=== PATIENT | male | born 1995 | race African-American/Black ===

== ENCOUNTER 2020-08-12 11:13 | Emergency (ER) | payer OTHER ==
[~2020-08-12] VITALS: Ht 182.9 cm; Wt 75.3 kg
[2020-08-12] MEDS ORDERED: CEPHALEXIN500 MG PO ×2 (11:56→12:34)
[2020-08-12 12:33] VITALS: BP 129/68
== END 2020-08-12 12:51 | disposition home or self-care (01) ==
LOC: M.ERS 11:13
DX: S61.412A Laceration without foreign body of left hand, initial encounter (principal); W26.8XXA Contact with other sharp object(s), not elsewhere classified, initial encounter; Y93.89 Activity, other specified; Y92.89 Other specified places as the place of occurrence of the external cause; Y99.8 Other external cause status

== ENCOUNTER 2020-08-24 11:43 | Emergency (ER) | payer OTHER ==
[~2020-08-24] VITALS: Ht 182.9 cm; Wt 74.8 kg
[~2020-08-24 11:43] MED LIST: CEPHALEXIN500 MG PO
[2020-08-24 11:50] VITALS: BP 132/80
== END 2020-08-24 12:27 | disposition home or self-care (01) ==
LOC: M.ERS 11:43
DX: S61.412D Laceration without foreign body of left hand, subsequent encounter (principal); X58.XXXD Exposure to other specified factors, subsequent encounter